=== PATIENT | male | born 1955 | race Hispanic/Latino ===

== ENCOUNTER 2020-07-02 13:41 | Emergency (ER) | payer SELFPAY ==
[~2020-07-02] VITALS: Ht 170.2 cm; Wt 86.2 kg
== END 2020-07-02 16:40 | disposition home or self-care (01) ==
LOC: ER 14:23
DX: J18.9 Pneumonia, unspecified organism (principal); R05 Cough; I10 Essential (primary) hypertension; B19.20 Unspecified viral hepatitis C without hepatic coma; Z20.822 Contact with and (suspected) exposure to COVID-19
CPT/HCPCS: 71045; 99283; U0002